=== PATIENT | female | born 1990 | race Caucasian/White ===

== ENCOUNTER 2023-05-26 12:05 | Emergency (ER) | payer OTHER ==
[~2023-05-26] VITALS: Ht 154.9 cm; Wt 91.8 kg
[2023-05-26 12:09] VITALS: TEMP 98
[2023-05-26 12:32] LABS: COLLECTION METHOD CLEAN CATCH
[2023-05-26 12:47] LABS: BASO # 0.1 K/mm3 (0.0-0.2); BASO % 0.4 % (0.0-2.0); EOS # 0.2 K/mm3 (0.0-0.7); EOS % 1.2 % (0.0-4.0); GRAN # 10.5 K/mm3 (1.4-6.5); GRAN % 76.3 % (42.2-75.2); HEMATOCRIT 39.2 % (37.0-47.0); HEMOGLOBIN 13.2 g/dl (12.5-16.0); LYMPH # 2.4 K/mm3 (1.2-3.4); LYMPH % 17.4 % (20.0-51.0); MEAN CELL VOLUME 92 fl (80.0-100.0); MEAN CORPUSCULAR HEMOGLOBIN 31 pg (27-31); MEAN CORPUSCULAR HGB CONC 34 g/dl (33.0-37.0); MEAN PLATELET VOLUME 10.1 fl (7.4-10.4); MONO # 0.6 K/mm3 (0.1-0.6); MONO % 4.3 % (1.7-9.3); PLATELET COUNT 262 K/mm3 (130-400); RED BLOOD COUNT 4.26 M/mm3 (4.10-5.30); REDCELL DISTRIBUTION WIDTH-CV 12.4 % (11.5-14.5)
[2023-05-26 12:58] LABS: URINE APPEARANCE Clear (CLEAR/HAZY); URINE BLOOD Negative (NEGATIVE); URINE COLOR Yellow (YELLOW); URINE GLUCOSE Negative (NEGATIVE); URINE KETONE Negative (NEGATIVE); URINE NITRATE Negative (NEGATIVE); URINE PROTEIN(semi-quant) Negative (NEGATIVE); URINE RBC 0-2 /hpf (0-2); URINE UROBILINOGEN 0.2 E.U/dL (0.2-1.0)
[2023-05-26 12:59] LABS: SQUAMOUS EPITHELIAL 0-2 /hpf (0-10); URINE BACTERIA Moderate /hpf (NONE SEEN)
[2023-05-26 13:05] LABS: ALANINE AMINOTRANSFERASE 11 U/L (0-55); ALBUMIN 3.1 gm/dL (3.5-5.0); ALKALINE PHOSPHATASE 59 U/L (40-150); ANION GAP 9 mmol/L (7-16); AST,SGOT 12 U/L (5-34); BILIRUBIN,TOTAL 0.2 mg/dL (0.2-1.2); BLOOD UREA NITROGEN 7 mg/dL (7-19); CALCIUM 9.1 mg/dL (8.4-10.2); CARBON DIOXIDE 20 mmol/L (22-29); CHLORIDE 108 mmol/L (98-107); CREATININE, serum 0.64 mg/dL (0.57-1.11); GLUCOSE 82 mg/dL (70-99); POTASSIUM 4.2 mmol/L (3.5-4.5); SODIUM 137 mmol/L (136-145); TOTAL PROTEIN 6.6 gm/dL (6.2-8.1)
[2023-05-26 13:25] LABS: TSH w REFLEX 1.305 uIU/mL (0.350-4.940)
[2023-05-26 13:41] LABS: TROPONIN-I < 0.010 ng/mL (0.00-0.033)
[2023-05-26] MEDS ORDERED: AMOXICILLIN 8751 TAB PO (13:51)
[2023-05-26 14:45] VITALS: BP 114/72; PULSE 66
== END 2023-05-26 14:45 | disposition home or self-care (01) ==
LOC: COL.ER 12:05
PROVIDERS: Emergency Medicine
DX: O99.891 Other specified diseases and conditions complicating pregnancy (principal); R82.71 Bacteriuria; Z3A.21 21 weeks gestation of pregnancy; Z20.822 Contact with and (suspected) exposure to COVID-19

== ENCOUNTER → 2023-08-08 | Outpatient (CLI) | payer OTHER ==
[~2023-08-08] VITALS: Ht 154.9 cm; Wt 94.5 kg
[~2023-08-08] MED LIST: AMOXICILLIN 8751 TAB PO; PRENATAL
--- NOTE | 2023-08-08 20:25 | NUR ---
PT TO UNIT AMBULATORY WITH CONCERNS OF POSSIBLE SROM AT 1730. PT STATES THAT SHE HAD TO CHANGE HER UNDERWEAR THEY WERE WET, ALSO CHANGED THEM AGAIN JUST PRIOR TO HER ARRIVAL. PT ORIENTED TO ROOM, CHANGED INTO GOWN, VS OBTAINED, EFMX2 APPLIED. AMNIOSWAB NEGATIVE, SVE PERFORMED, CLOSED/HIGH AND NO FLUID VISUALIZED. GLOVE SWABBED AND ALSO NEGATIVE. WILL CONTACT BEHAVIORAL HEALTH CASE MANAGER PHYSICIAN.
[2023-08-08 20:49] VITALS: BP 136/85; PULSE 67; TEMP 98
[2023-08-08 22:10] VITALS: BP 120/73; PULSE 58
--- NOTE | 2023-08-08 22:50 | NUR ---
2210: SVE CLOSED THICK AND HIGH. CHECKED AMNIOSWAB FROM PAD AFTER PATIENT WALKED PER 'S DIRECTION. AMNIOSWAB WAS NEGATIVE. JM YU NOTIFIED OF NO CHANGE AND NEGATIVE SWAB. 2250: DISCHARGE INSTRUCTIONS GIVEN. PT VERBALIZED UNDERSTANDING. DISCHARGED AT THIS TIME. PT AMBULATES OUT ON HER OWN AT THIS TIME. NO OTHER CONCERNS REGARDING THIS PATIENT AT THE PRESENT TIME.
== END ==
LOC: LDRO 20:16
DX: Z34.93 Encounter for supervision of normal pregnancy, unspecified, third trimester (principal); Z3A.31 31 weeks gestation of pregnancy

== ENCOUNTER 2023-09-12 09:28 | Outpatient (CLI) | payer OTHER ==
[~2023-09-12] VITALS: Ht 154.9 cm; Wt 99.5 kg
[2023-09-12 09:50] VITALS: BP 133/92; PULSE 74
[2023-09-12 10:08] VITALS: BP 132/93; PULSE 84
[2023-09-12] MEDS ORDERED: LR 1,000 ML IV PRN (10:15)
[2023-09-12 10:20] VITALS: BP 129/92; PULSE 89
--- NOTE | 2023-09-12 10:26 | NUR ---
0998 PT PRESENTS TO UNIT FROM HOME. PT COMPLAINS OF PAIN. STATES SHE HAS BEEN CONTRACTION Q3-5 MIN FOR "WEEKS NOW" AND IS "SO UNCOMFORTABLE". PT DENIES LOF, VB, DFM, OR ANY OTHER CHANGES/CONCERNS. PT STATES SHE SAW DR MIX ON SUNDAY & HE HAD CONCERNS BECAUSE "BABY WAS NOT DOWN IN THE PELVIS". PT STATES HER CERVIX WAS CLOSED ON SUNDAY. PT DENIES ANY PIH SYMPTOMS AT THIS TIME BUT STATES SHE WAS INDUCED FOR PIH WITH PREVIOUS . RN DISCUSSES POC WITH PT AND PT VERBALIZES UNDERSTANDING AND HAS NO QUESTIONS.
--- NOTE | 2023-09-12 10:29 | NUR ---
1017 RN UPDATES MARIA DEL ROSARIO BURCH ON PT ARRIVAL, COMPLAINTS, SVE CLOSED/THICK/HIGH, CTX PATTERN, FHTS REACTIVE. ORDERS TO DISCHARGE PATIENT HOME WITH LABOR PRECAUTIONS AND ORDERS TO KEEP HER PREVIOUSLY SCHEDULED APPOINTMENTS. JM RBVO.
[2023-09-12 10:45] VITALS: BP 129/92; PULSE 89; TEMP 98
--- NOTE | 2023-09-12 10:47 | NUR ---
1047 PT GIVEN BOTH WRITTEN AND VERBAL DISCHARGE INSTRUCTIONS. PT INSTRUCTED TO CALL/COME BACK IF PT NOTICES ANY LOF, DFM, VB, STRONG/REGULAR CTX OR ANY OTHER CHANGES/CONCERNS. PT EDUCATED ON PIH SYMPTOMS AND REASONS TO BE SEEN. PT VERBALIZES UNDERSTANDING AND HAS NO QUESTIONS AT THIS TIME
--- NOTE | 2023-09-12 10:51 | NUR ---
AUDIBLE MOVEMENT NOTED BY RN
== END 2023-09-12 10:45 | disposition home or self-care (01) ==
LOC: LDRO 09:28 → LDR 09:50 → LDRO 10:45
DX: O26.893 Other specified pregnancy related conditions, third trimester (principal); R52 Pain, unspecified; Z3A.36 36 weeks gestation of pregnancy
CPT/HCPCS: OP

== ENCOUNTER 2023-10-01 09:48 | Inpatient (IN) | payer OTHER ==
[~2023-10-01] VITALS: Ht 155 cm; Wt 99.1 kg
[2023-10-01] VITALS (16 sets, daily range): BP systolic 112–135; BP diastolic 65–92; PULSE 52–77; TEMP 98–98.4
[~2023-10-01 09:48] MED LIST changes: +TYLENOL 500MG500 MG PO; +VALTREX 50500 MG/TAB PO
[2023-10-01] MEDS ORDERED: LR 1,000 ML IV SCH ×2 (10:00→11:00)
[2023-10-01] MEDS ORDERED: Ondansetron 4 MG/2 ML VIAL IV SCH (11:00)
[2023-10-01 11:17] LABS: BASO % 0.3 % (0.0-2.0); EOS # 0.1 K/mm3 (0.0-0.7); EOS % 0.7 % (0.0-4.0); GRAN # 9.2 K/mm3 (1.4-6.5); GRAN % 73.7 % (42.2-75.2); HEMOGLOBIN 12.2 g/dl (12.5-16.0); LYMPH # 2.5 K/mm3 (1.2-3.4); LYMPH % 19.9 % (20.0-51.0); MEAN CELL VOLUME 89 fl (80.0-100.0); MEAN CORPUSCULAR HEMOGLOBIN 30 pg (27-31); MEAN CORPUSCULAR HGB CONC 34 g/dl (33.0-37.0); MEAN PLATELET VOLUME 10.3 fl (7.4-10.4); MONO # 0.6 K/mm3 (0.1-0.6); MONO % 4.9 % (1.7-9.3); PLATELET COUNT 262 K/mm3 (130-400); RED BLOOD COUNT 4.03 M/mm3 (4.10-5.30); REDCELL DISTRIBUTION WIDTH-CV 12.5 % (11.5-14.5)
[2023-10-01 11:19] LABS: HEMATOCRIT 35.8 % (37.0-47.0)
[2023-10-01] MEDS ORDERED: Oxytocin 10 UNITS/ML VIAL ONE (11:34)
[2023-10-01] MEDS ORDERED: ePHEDrine 50 MG/ML VIAL ONE (11:34)
[2023-10-01] MEDS ORDERED: NS 10 ML IV ONE ×2 (11:34→12:46)
[2023-10-01] MEDS ORDERED: Phenylephrine 10 MG/ML VIAL ONE (11:34)
[2023-10-01] MEDS ORDERED: Ketorolac 30 MG/ML VIAL ONE (12:26)
[2023-10-01] MEDS ORDERED: dexAMETHasone 10 MG/ML VIAL ONE (12:46)
[2023-10-01] MEDS ORDERED: Loratadine 10 MG TAB PO PRN (13:15)
[2023-10-01] MEDS ORDERED: Magnes Hydrox (MOM) 80 MG/ML 30 ML CUP PO PRN (13:15)
[2023-10-01] MEDS ORDERED: oxyCODONE/Acetaminophen 5-325 MG TAB PO PRN (13:30)
[2023-10-01] MEDS ORDERED: Naloxone 0.4 MG/ML VIAL IV PRN (13:30)
[2023-10-01] MEDS ORDERED: Ondansetron 4 MG/2 ML VIAL IV PRN (13:30)
[2023-10-01] MEDS ORDERED: Measles/Mumps/Rubella Virus Vaccine Live w Diluent 0.5 ML VIAL SQ SCH (13:30)
[2023-10-01] MEDS ORDERED: LR 1,000 ML IV PRN (13:30)
[2023-10-01] MEDS ORDERED: Sennosides/Docusate 8.6-50 MG TAB PO SCH (17:00)
--- NOTE | 2023-10-01 18:30 | NUR ---
Report recieved at this time. Resting in bed while holding . SCD's on bilaterally. INT clean/dry/intact. Bartholomew catheter bag currently empty. Updated whiteboard and reviewed POC. Verbalized understanding.
[2023-10-01] MEDS ORDERED: Ibuprofen 800 MG TAB PO SCH (19:03)
[2023-10-01] MEDS ORDERED: traZODone 50 MG TAB PO PRN (21:00)
--- NOTE | 2023-10-01 21:15 | NUR ---
Ambulated to restroom at this time; tearful with ambulation. Positive encouragment provided. Rocha catheter dc'd per physician order; 150mls of yellow, clear urine drained from rocha bag. Pericare done. Ambulated back to bed. Education provided on how to get out of bed without utalizing abd muscles. Instructed to ambulate as tolerated in the room. To attempt to void in three hours. Denied questions/concerns.
[2023-10-02 00:15] VITALS: BP 125/60; PULSE 71
[2023-10-02 04:10] VITALS: BP 147/76; PULSE 56; TEMP 97.9
[2023-10-02 07:20] VITALS: BP 124/81; PULSE 63; TEMP 97.8
--- NOTE | 2023-10-02 10:58 | NUR ---
Initial visit; Patient thanked [employer] Test Engineer for offering congratulations and God's blessings for the of her son and his two brothers at home. [employer] Test Engineer thanked patient for choosing our hospital and wished her well.
[2023-10-02 16:24] VITALS: BP 129/82; PULSE 73; TEMP 97.7
[2023-10-02 20:15] VITALS: BP 130/66; PULSE 70; TEMP 98.6
[2023-10-03] MEDS ORDERED: MOTRIN 800800 MG/TAB PO (07:32)
[2023-10-03] MEDS ORDERED: PERCOCET 325 MG1 TA2 PO (07:32)
[2023-10-03 08:00] VITALS: BP 129/83; PULSE 71; TEMP 97.6
== END 2023-10-03 12:00 | disposition home or self-care (01) | DRG 787 ==
LOC: OB 09:48
PROVIDERS: ADMIT Obstetrics & Gynecology
PROC: 10D00Z1 Extraction of Products of Conception, Low, Open Approach (ICD-10-PCS; principal; 2023-10-01)
DX: O36.63X0 Maternal care for excessive fetal growth, third trimester, not applicable or unspecified (principal); O98.32 Other infections with a predominantly sexual mode of transmission complicating childbirth; Z3A.39 39 weeks gestation of pregnancy; Z37.0 Single live birth; A60.09 Herpesviral infection of other urogenital tract; Z90.49 Acquired absence of other specified parts of digestive tract; Z23 Encounter for immunization
CPT/HCPCS: J0665; J0690; J1100; J1885; J2371; J2590; J7120